=== PATIENT | male | born 1965 | race Caucasian/White ===

== ENCOUNTER 2018-10-12 04:32 | Inpatient (IN) | payer OTHER ==
[2018-10-12] MEDS: SOD CHLORIDE 0.9% 1,000 ML IV ×3 (04:47→16:17)
[2018-10-12] MEDS ORDERED: NACL 0.9% 3 ML SYG IV (05:00)
[2018-10-12] MEDS ORDERED: morphine 4 MG/ML VIAL IV (05:00)
[2018-10-12] MEDS ORDERED: ONDANSETRON 4 MG INJ IV (05:00)
[2018-10-12] MEDS ORDERED: ACETAMINOPHEN 325 MG TAB PO (05:00)
[2018-10-12] MEDS: METHYLPREDNISOLONE 40 MG INJ IV ×3 (06:20→21:35)
[2018-10-12] MEDS: MESALAMINE (SR) 250 MG CAP PO ×4 (06:20→20:32)
[2018-10-12 06:50] LABS: ADD MAN DIFF? NO
[2018-10-12 06:53] LABS: WHITE BLOOD COUNT 9.4 10^3/ul (4.8-10.8)
[2018-10-12 06:53] LABS: BASOPHIL # 0.1 10^3/ul (0.0-0.1); EOSINOPHILS # 0.8 10^3/ul (0.0-0.5); EOSINOPHILS % 8.8 % (0.0-7.0); HEMATOCRIT 39.4 % (42.0-52.0); HEMOGLOBIN 13.2 g/dl (14.0-18.0); LYMPHOCYTES # 2.6 10^3/ul (0.8-2.9); LYMPHOCYTES % 27.3 % (15.0-51.0); MEAN CORPUSCULAR HEMOGLOBIN 29.9 pg (29.0-33.0); MEAN CORPUSCULAR HGB CONC 33.5 g/dl (32.0-37.0); MEAN CORPUSCULAR VOLUME 89.1 fl (82.0-101.0); MEAN PLATELET VOLUME 8.6 fl (7.4-10.4); MONOCYTE # 1.2 10^3/ul (0.3-0.9); NEUTROPHIL # 4.6 10^3/ul (1.6-7.5); NEUTROPHILS % 49.6 % (39.0-77.0); PLATELET COUNT 353 10^3/UL (140-415); RED BLOOD COUNT 4.42 10^6/ul (4.70-6.10); RED CELL DISTRIBUTION WIDTH 12.4 % (11.5-14.5)
[2018-10-12 07:01] LABS: HEMOGLOBIN A1C 5.9 % (0-5.9)
[2018-10-12 07:10] LABS: ALANINE AMINOTRANSFERASE 18 IU/L (13-69); ALBUMIN 3.3 g/dl (3.3-4.9); ALBUMIN/GLOBULIN RATIO 0.89; ALKALINE PHOSPHATASE 99 IU/L (42-121); ANION GAP 13 (5-13); ASPARTATE AMINO TRANSFERASE 15 IU/L (15-46); BILIRUBIN,INDIRECT 0.7 mg/dl (0-1.1); BILIRUBIN,TOTAL 0.7 mg/dl (0.2-1.3); BLOOD UREA NITROGEN 10 mg/dl (7-20); CARBON DIOXIDE 23 mmol/L (21-31); CHLORIDE 105 mmol/L (97-110); CHOL/HDL RATIO 5.4 RATIO; CHOLESTEROL 92 mg/dl (100-200); Estimated GFR > 60 mL/min (>60); GLUCOSE 112 mg/dl (70-220); HDL CHOLESTEROL 17 mg/dl (28-71); LDL CHOLESTEROL,CALCULATED 52 mg/dl; SODIUM 141 mmol/L (135-144); TRIGLYCERIDES 113 mg/dl (0-149)
[2018-10-12 08:00] LABS: C-REACTIVE PROTEIN 4.8 mg/dl (0.0-0.9)
[2018-10-12 08:52] LABS: ERYTHROCYTE SEDIMENTATION RATE 30 mm/Hr (0-20)
[2018-10-12 09:18] LABS: LACTIC ACID 0.9 mmol/L (0.5-2.0)
[2018-10-12 10:30] LABS: OCCULT BLOOD STOOL POSITIVE (NEGATIVE)
[2018-10-12] MEDS: PANTOPRAZOLE 40 MG INJ IV (11:04)
[2018-10-12] MEDS: IOHEXOL 14.3 MG(I)/ML (ADULT) BTL PO (17:02)
[2018-10-12] MEDS: SOD CHLORIDE 0.9% 100 ML (20:21)
[2018-10-12] MEDS: IOHEXOL 300MG/ML 150 ML BTL (20:21)
[2018-10-13] MEDS: SOD CHLORIDE 0.9% 1,000 ML IV ×3 (00:47→17:26)
[2018-10-13 06:06] LABS: ADD MAN DIFF? NO
[2018-10-13 06:10] LABS: BASOPHILS % 0.1 % (0.0-2.0); HEMATOCRIT 38.4 % (42.0-52.0); LYMPHOCYTES # 1.6 10^3/ul (0.8-2.9); LYMPHOCYTES % 16.4 % (15.0-51.0); MEAN CORPUSCULAR HEMOGLOBIN 30.2 pg (29.0-33.0); MEAN CORPUSCULAR HGB CONC 33.9 g/dl (32.0-37.0); MEAN CORPUSCULAR VOLUME 89.1 fl (82.0-101.0); MEAN PLATELET VOLUME 8.7 fl (7.4-10.4); MONOCYTE # 0.7 10^3/ul (0.3-0.9); MONOCYTES % 7.4 % (0.0-11.0); NEUTROPHIL # 7.5 10^3/ul (1.6-7.5); NEUTROPHILS % 75.6 % (39.0-77.0); PLATELET COUNT 368 10^3/UL (140-415); RED BLOOD COUNT 4.31 10^6/ul (4.70-6.10); RED CELL DISTRIBUTION WIDTH 12.4 % (11.5-14.5)
[2018-10-13 06:10] LABS: WHITE BLOOD COUNT 9.9 10^3/ul (4.8-10.8)
[2018-10-13 06:38] LABS: IRON 67 ug/dl (35-150)
[2018-10-13 06:48] LABS: % IRON SATURATION 25 % SAT (22-52); TOTAL IRON BINDING CAPACITY 272 ug/dl (241-421)
[2018-10-13 07:04] LABS: ALANINE AMINOTRANSFERASE 18 IU/L (13-69); ALBUMIN 3.4 g/dl (3.3-4.9); ALBUMIN/GLOBULIN RATIO 0.91; ALKALINE PHOSPHATASE 93 IU/L (42-121); ANION GAP 12 (5-13); ASPARTATE AMINO TRANSFERASE 15 IU/L (15-46); BILIRUBIN,INDIRECT 0.5 mg/dl (0-1.1); BILIRUBIN,TOTAL 0.5 mg/dl (0.2-1.3); BLOOD UREA NITROGEN 10 mg/dl (7-20); CALCIUM 8.8 mg/dl (8.4-10.2); CARBON DIOXIDE 24 mmol/L (21-31); CHLORIDE 105 mmol/L (97-110); CREATININE 0.79 mg/dl (0.61-1.24); Estimated GFR > 60 mL/min (>60); GLUCOSE 154 mg/dl (70-220); POTASSIUM 4.4 mmol/L (3.5-5.1); SODIUM 141 mmol/L (135-144); TOTAL PROTEIN 7.1 g/dl (6.1-8.1)
[2018-10-13] MEDS: PANTOPRAZOLE 40 MG INJ IV (07:06)
[2018-10-13] MEDS: METHYLPREDNISOLONE 40 MG INJ IV ×3 (07:06→21:18)
[2018-10-13 07:27] LABS: PHOSPHORUS 4.4 mg/dl (2.5-4.9)
[2018-10-13 07:27] LABS: MAGNESIUM 2.1 mg/dl (1.7-2.5)
[2018-10-13] MEDS: BISACODYL (EC) 5 MG TAB PO ×2 (08:34→17:26)
[2018-10-13] MEDS: POLYETHYLENE GLYCOL 3350 119 GM POWDER PO (10:00)
[2018-10-13] MEDS: MESALAMINE (SR) 250 MG CAP PO ×4 (10:00→21:18)
[2018-10-13] MEDS: POLYETHYLENE GLYCOL 17 GM PACKET PO ×3 (11:49→17:26)
[2018-10-13] MEDS: MAGNESIUM CITRATE 300 ML BTL PO (11:52)
[2018-10-13] MEDS ORDERED: POLYETHYLENE GLYCOL 17 GM PACKET PO (12:00)
[2018-10-13] MEDS ORDERED: POLYETHYLENE GLYCOL 3350 119 GM POWDER PO (16:00)
[2018-10-14] MEDS: SOD CHLORIDE 0.9% 1,000 ML IV ×3 (03:40→18:41)
[2018-10-14] MEDS: METHYLPREDNISOLONE 40 MG INJ IV ×3 (05:49→22:37)
[2018-10-14] MEDS: PANTOPRAZOLE 40 MG INJ IV (05:49)
[2018-10-14] MEDS: MESALAMINE (SR) 250 MG CAP PO ×4 (08:56→22:37)
[2018-10-14] MEDS ORDERED: ONDANSETRON 4 MG INJ IV (15:30)
[2018-10-14] MEDS: PROPOFOL 20 ML (17:00)
[2018-10-14] MEDS: FENTAnyl 50 MCG/ML VIAL (17:00)
[2018-10-15] MEDS: SOD CHLORIDE 0.9% 1,000 ML IV ×3 (02:47→16:24)
[2018-10-15 05:27] LABS: ADD MAN DIFF? NO
[2018-10-15 05:38] LABS: BASOPHILS % 0.2 % (0.0-2.0); HEMATOCRIT 36.5 % (42.0-52.0); LYMPHOCYTES # 1.3 10^3/ul (0.8-2.9); LYMPHOCYTES % 14.3 % (15.0-51.0); MEAN CORPUSCULAR HEMOGLOBIN 29.9 pg (29.0-33.0); MEAN CORPUSCULAR HGB CONC 32.9 g/dl (32.0-37.0); MEAN PLATELET VOLUME 9.1 fl (7.4-10.4); MONOCYTE # 0.5 10^3/ul (0.3-0.9); MONOCYTES % 5.9 % (0.0-11.0); NEUTROPHIL # 7.1 10^3/ul (1.6-7.5); NEUTROPHILS % 78.4 % (39.0-77.0); PLATELET COUNT 385 10^3/UL (140-415); RED BLOOD COUNT 4.01 10^6/ul (4.70-6.10); RED CELL DISTRIBUTION WIDTH 12.8 % (11.5-14.5)
[2018-10-15] MEDS: PANTOPRAZOLE 40 MG INJ IV (06:06)
[2018-10-15] MEDS: METHYLPREDNISOLONE 40 MG INJ IV ×2 (06:06→21:26)
[2018-10-15 06:11] LABS: MAGNESIUM 2.5 mg/dl (1.7-2.5)
[2018-10-15 06:11] LABS: PHOSPHORUS 3.9 mg/dl (2.5-4.9)
[2018-10-15 06:17] LABS: ANION GAP 8 (5-13); BLOOD UREA NITROGEN 13 mg/dl (7-20); CALCIUM 8.4 mg/dl (8.4-10.2); CARBON DIOXIDE 26 mmol/L (21-31); CHLORIDE 107 mmol/L (97-110); CREATININE 0.86 mg/dl (0.61-1.24); Estimated GFR > 60 mL/min (>60); GLUCOSE 137 mg/dl (70-220); POTASSIUM 4.4 mmol/L (3.5-5.1); SODIUM 141 mmol/L (135-144)
[2018-10-15] MEDS: MESALAMINE (SR) 250 MG CAP PO ×4 (09:35→21:25)
[2018-10-15] MEDS ORDERED: morphine LIQ (10 MG/5 ML) CUP PO (22:30)
[2018-10-16] MEDS: SOD CHLORIDE 0.9% 1,000 ML IV ×2 (01:55→11:58)
[2018-10-16] MEDS ORDERED: PANTOPRAZOLE 40 MG INJ (03:50)
[2018-10-16] MEDS: PANTOPRAZOLE (EC) 40 MG TAB PO (05:41)
[2018-10-16] MEDS: METHYLPREDNISOLONE 40 MG INJ IV (08:18)
[2018-10-16] MEDS: MESALAMINE (SR) 250 MG CAP PO ×3 (08:18→17:29)
[2018-10-16] MEDS ORDERED: predniSONE 10 MG TAB PO (21:00)
== END 2018-10-16 17:45 | disposition home or self-care (01) | DRG 387 ==
LOC: PP2 10-13 05:48 → TEL 04:32
PROVIDERS: Family Medicine
PROC: 0DBK8ZX Excision of Ascending Colon, Via Natural or Artificial Opening Endoscopic, Diagnostic (ICD-10-PCS; principal; 2018-10-14 14:42)
PROC: 0DBL8ZX Excision of Transverse Colon, Via Natural or Artificial Opening Endoscopic, Diagnostic (ICD-10-PCS; 2018-10-14 14:42)
PROC: 0DBN8ZX Excision of Sigmoid Colon, Via Natural or Artificial Opening Endoscopic, Diagnostic (ICD-10-PCS; 2018-10-14 14:42)
PROC: 0DBB8ZX Excision of Ileum, Via Natural or Artificial Opening Endoscopic, Diagnostic (ICD-10-PCS; 2018-10-14 14:42)
PROC: 0DBM8ZX Excision of Descending Colon, Via Natural or Artificial Opening Endoscopic, Diagnostic (ICD-10-PCS; 2018-10-14 14:42)
PROC: 0DBH8ZX Excision of Cecum, Via Natural or Artificial Opening Endoscopic, Diagnostic (ICD-10-PCS; 2018-10-14 14:42)
PROC: 0DB68ZX Excision of Stomach, Via Natural or Artificial Opening Endoscopic, Diagnostic (ICD-10-PCS; 2018-10-14 14:42)
PROC: 0DB78ZX Excision of Stomach, Pylorus, Via Natural or Artificial Opening Endoscopic, Diagnostic (ICD-10-PCS; 2018-10-14 14:42)
DX: K51.011 Ulcerative (chronic) pancolitis with rectal bleeding (principal); E66.9 Obesity, unspecified; D64.9 Anemia, unspecified; K29.70 Gastritis, unspecified, without bleeding; K29.80 Duodenitis without bleeding; Z68.33 Body mass index [BMI] 33.0-33.9, adult
CPT/HCPCS: 74177; 80048; 80053; 80061; 82270; 82728; 83036; 83540; 83605; 83735; 84100; 84443; 85025; 85651; 86140; 87045; 87075; 87177; 87205; 88305; 88312